=== PATIENT | male | born 1985 | race African-American/Black ===

== ENCOUNTER 2017-04-27 22:24 | Emergency (ER) | payer OTHER ==
[2017-04-27 22:31] VITALS: BP 150/89
[2017-04-28] MEDS ORDERED: Ibuprofen TAB* 600 MG ONE (00:58)
[2017-04-28] MEDS ORDERED: Ibuprofen TAB* 600 MG PO ONE (01:01)
--- NOTE | 2017-05-03 15:34 | ED ---
Laceration/Wound HPI - HPI Summary HPI Summary: Patient presents with laceration to the face and neck which occurred an hour ago by a make-shift knife (duncan) in the yard in the correctional facility. Denies pain. Bleeding is controlled on arrival and patient arrives with several steri strips and compression gauze to the face. Denies dizziness, DOSHI or other symptoms. Laceration is approx 18cm in length and spans from the right mid cheek to the posterior neck ending at the hair line. - History of Current Complaint Stated Complaint: FACIAL & NECK LACERATION Time Seen by Provider: 04/27/17 22:56 Hx Obtained From: Patient Mechanism of Injury: Sharp/Blunt Trauma Onset/Duration: Sudden Onset Aggravating: Nothing Alleviating: Compression Timing: Constant Onset Severity: Mild Current Severity: None Pain Intensity: 4 Pain Scale Used: 0-10 Numeric - Allergy/Home Medications Allergies/Adverse Reactions: Allergies Allergy/AdvReac Type Severity Reaction Status Date / Time No Known Allergies Allergy Verified 04/27/17 22:30 PMH/Surg Hx/FS Hx/Imm Hx Previously Healthy: Yes - Immunization History Hx Pertussis Vaccination: No Immunizations Up to Date: Unable to Obtain/Confirm Infectious Disease History: No Infectious Disease History: Denies: Traveled Outside the [place] in Last 30 Days - Social History Occupation: Unemployed Lives: Alone - correctional facility Alcohol Use: None Hx Substance Use: No Substance Use Type: Reports: None Hx Tobacco Use: No Review of Systems Constitutional: Negative Eyes: Negative Respiratory: Negative Gastrointestinal: Negative Positive: no symptoms reported, see HPI Musculoskeletal: Negative Positive: Other - large laceration to the face Neurological: Negative Psychological: Normal All Other Systems Reviewed And Are Negative: Yes Physical Exam Triage Information Reviewed: Yes Vital Signs On Initial Exam: Initial Vitals Temp Pulse Resp BP Pulse Ox 97.8 F 87 14 150/89 100 04/27/17 22:28 04/27/17 22:28 04/27/17 22:28 04/27/17 22:28 04/27/17 22:28 Vital Signs Reviewed: Yes Appearance: Positive: Well-Appearing, Well-Nourished Skin: Positive: Warm, Skin Color Reflects Adequate Perfusion, Other - large laceration to the face and neck Head/Face: Positive: Normal Head/Face Inspection Eyes: Positive: EOMI, PEMA Neck: Positive: Supple, No Lymphadenopathy Respiratory/Lung Sounds: Positive: Clear to Auscultation, Breath Sounds Present Cardiovascular: Positive: Normal, RRR, Pulses are Symmetrical in both Upper and Lower Extremities Musculoskeletal: Positive: Normal, Strength/ROM Intact Psychiatric: Positive: Normal, Affect/Mood Appropriate - Petra Coma Scale Coma Scale Total: 15 Diagnostics - Vital Signs Vital Signs Temp Pulse Resp BP Pulse Ox 04/27/17 22:28 97.8 F 87 14 150/89 100 - Laboratory Lab Statement: Any lab studies that have been ordered have been reviewed, and results considered in the medical decision making process. Laceration Repair Course/Dx - Course Course Of Treatment: Patient presents with laceration to the face. The laceration is 18cm in length, spans from the mid right cheek to the posterior neck ending at the hairline. The cheek has a laceration which is superficial extending to the right neck which is wide, but superficial. There is no evidence of EJV, IJV or carotid involvement. VS stable. Patient denies any symptoms. Timeout obtained. The wound was jet irrigated using NS. 26 sutures placed: 16 4-0 prolene, and 10 6-0 prolene. Patient tolerated well. Compression and gauze wrapped. Recheck by nurse in 1 day. Ok to discharge. - Differential Dx Differental Diagnoses: Laceration - Clinical Impression Provider Diagnoses: Laceration of face Discharge - Discharge Plan Condition: Stable Disposition: HOME Patient Education Materials: Care For Your Stitches (ED), Laceration (ED) Referrals: [facility], [Primary Care Provider] - Additional Instructions: Continue with bandage until tomorrow You may then leave open to air If you develop redness, streaks of red around the wound, swelling, abnormal drainage or you develop a fever - you need to come back to the ED right away. Any sutures posterior to the right sided facial keloid: Suture removal in 7 days. Any sutures anterior to the right sided facial keloid: Suture removal in 5 days. Ibuprofen 600mg three times daily as needed for pain If the area starts to swell - apply an ice over towel the face
== END 2017-04-28 01:23 | disposition home or self-care (01) ==
LOC: ED 22:24
DX: S01.411A Laceration without foreign body of right cheek and temporomandibular area, initial encounter (principal); S11.91XA Laceration without foreign body of unspecified part of neck, initial encounter; W26.0XXA Contact with knife, initial encounter; Y92.147 Courtyard of prison as the place of occurrence of the external cause
CPT/HCPCS: 12016; 99282; A9270-GY